=== PATIENT | male | born 1950 | race Caucasian/White ===

== ENCOUNTER → 2018-03-24 | Outpatient (CLI) | payer MEDICARE, BC | LOC: LABWHC1 12:57 | PROVIDERS: ATTEND Otolaryngology | DX: K11.5 Sialolithiasis (principal) | CPT/HCPCS: 36415; 82330 ==

== ENCOUNTER → 2018-09-03 | Outpatient (CLI) | payer MEDICARE, BC ==
--- NOTE | 2018-09-03 14:40 | CT ---
EXAMINATION TYPE: CT soft tissue neck w con DATE OF EXAM: 09/03/2018 HISTORY: Generalized right sided neck swelling. COMPARISON: MRI neck March 02, 2013 CT DLP: 591 mGycm. Automated Exposure Control for Dose Reduction was Utilized. TECHNIQUE: CT scan of the neck is performed with IV Contrast, patient injected with 100ml mL of Isov ue 300, axial images are obtained, coronal and sagittal reformatted images are reviewed. FINDINGS: Airway: No gross abnormality seen. Parotid/submandibular glands: No gross abnormality seen. Carotid/Vascular Structures: No significant plaque or stenosis in carotid bulb level bilaterally. Osseous Structures: Mild disc space narrowing with vacuum disc phenomenon at C5-C6 and C6-C7 level. Other: No suspicious greater than 1 cm neck adenopathy. IMPRESSION: No suspicious mass or adenopathy.
== END | disposition home or self-care (01) ==
LOC: RADCTMAIN 13:20
PROVIDERS: ATTEND Otolaryngology
DX: K11.8 Other diseases of salivary glands (principal); R22.1 Localized swelling, mass and lump, neck
CPT/HCPCS: 82565; 84520; 70491; 36415; Q9967

== ENCOUNTER 2018-09-16 12:09 | Emergency (ER) | payer MEDICARE, BC ==
[2018-09-16 12:27] VITALS: TEMP 98.6
--- NOTE | 2018-09-16 12:29 | ED ---
General Adult HPI - General Stated complaint: chest pain Time Seen by Provider: 09/16/18 12:09 Source: RN notes reviewed - History of Present Illness Initial comments: This is a 68-year-old male who presents to the emergency department complaining of feeling lightheaded and having some left-sided chest pain that last approximate one minute. Patient was in the emergency department while his was in cardiac arrest and she eventually and after he left the room when she was pronounced he started feeling lightheaded and began to have left- sided chest pain. Patient states it lasted about a minute. Patient states the pain did not radiate anywhere. Patient states she was not short of breath. Patient states he was lightheaded and needed to sit down. Patient states currently he is not having any symptoms. Patient states a little early was mildly nauseated. Patient denies any radiation of the pain. Patient denies any diaphoretic episodes. Patient denies any history of cardiac problems denies any diabetes denies any high blood pressure denies any smoking history. Patient denies any family history of heart disease - Related Data Previous Rx's Medication Instructions Recorded ALPRAZolam [Xanax] 0.5 mg PO BID PRN 3 Days #6 tablet 09/16/18 Allergies Allergy/AdvReac Type Severity Reaction Status Date / Time No Known Allergies Allergy Verified 09/16/18 12:28 Review of Systems ROS Statement: Those systems with pertinent positive or pertinent negative responses have been documented in the HPI. ROS Other: All systems not noted in ROS Statement are negative. General Exam - General Exam Comments Initial Comments: GENERAL: Patient is well-developed and well-nourished. Patient is nontoxic and well- hydrated and is in no acute distress. ENT: Neck is soft and supple. No significant lymphadenopathy is noted. Oropharynx is clear. Moist mucous membranes. Neck has full range of motion without eliciting any pain. EYES: The sclera were anicteric and conjunctiva were pink and moist. Extraocular movements were intact and pupils were equal round and reactive to light. Ey elids were unremarkable. PULMONARY: Unlabored respirations. Good breath sounds bilaterally. No audible rales rhonchi or wheezing was noted. CARDIOVASCULAR: There is a regular rate and rhythm without any murmurs gallops or rubs. ABDOMEN: Soft and nontender with normal bowel sounds. No palpable organomegaly was noted. There is no palpable pulsatile mass. SKIN: Skin is clear with no lesions or rashes and otherwise unremarkable. NEUROLOGIC: Patient is alert and oriented x3. Cranial nerves II through XII are grossly intact. Motor and sensory are also intact. Normal speech, volume and content. Symmetrical smile. MUSCULOSKELETAL: Normal extremities with adequate strength and full range of motion. No lower extremity swelling or edema. No calf tenderness. LYMPHATICS: No significant lymphadenopathy is noted PSYCHIATRIC: Mildly anxious Course Vital Signs 09/16/18 09/16/18 09/16/18 12:15 12:55 13:30 Temperature 98.6 F Pulse Rate 78 71 83 Respiratory 16 18 20 Rate Blood Pressure 178/120 164/96 164/103 O2 Sat by Pulse 98 100 99 Oximetry 09/16/18 09/16/18 09/16/18 14:22 15:00 15:30 Temperature Pulse Rate 74 73 Respiratory 15 18 Rate Blood Pressure 148/91 142/99 141/97 O2 Sat by Pulse 97 97 Oximetry 09/16/18 09/16/18 16:00 16:30 Temperature Pulse Rate 79 75 Respiratory 16 18 Rate Blood Pressure 132/93 140/94 O2 Sat by Pulse 97 96 Oximetry Medical Decision Making - Medical Decision Making EKG shows normal sinus rhythm at 85 bpm CA interval 170 QRS is 96 QT interval 356 QTC is 423. Patient's EKG shows no ST segment elevation or depression or T wave abnormalities are noted. Chest x-ray showed no acute abnormality. Patient's repeat troponin was normal as well. Patient did not have any more episodes of chest pain while in the emergency department. Ativan did seem to help the patient feel more comfortable. - Lab Data Result diagrams: 09/16/18 12:15 09/16/18 12:15 Lab Results 09/16/18 09/16/18 09/16/18 Range/Units 12:15 12:15 12:15 WBC 7.2 (3.8-10.6) k/uL RBC 4.93 (4.30-5.90) m/uL Hgb 14.6 (13.0-17.5) gm/dL Hct 46.1 (39.0-53.0) % MCV 93.5 (80.0-100.0) fL MCH 29.5 (25.0-35.0) pg MCHC 31.6 (31.0-37.0) g/dL RDW 13.6 (11.5-15.5) % Plt Count 228 (150-450) k/uL Neutrophils % 75 % Lymphocytes % 15 % Monocytes % 8 % Eosinophils % 1 % Basophils % 0 % Neutrophils # 5.4 (1.3-7.7) k/uL Lymphocytes # 1.1 (1.0-4.8) k/uL Monocytes # 0.5 (0-1.0) k/uL Eosinophils # 0.0 (0-0.7) k/uL Basophils # 0.0 (0-0.2) k/uL PT 9.7 (9.0-12.0) sec INR 0.9 (<1.2) APTT 23.2 (22.0-30.0) sec Sodium 140 (137-145) mmol/L Potassium 4.3 (3.5-5.1) mmol/L Chloride 104 (98-107) mmol/L Carbon Dioxide 24 (22-30) mmol/L Anion Gap 12 mmol/L BUN 22 H (9-20) mg/dL Creatinine 1.07 (0.66-1.25) mg/dL Est GFR (CKD-EPI)AfAm 82 (>60 ml/min/1.73 sqM) Est GFR (CKD-EPI)NonAf 71 (>60 ml/min/1.73 sqM) Glucose 141 H (74-99) mg/dL Calcium 10.4 H (8.4-10.2) mg/dL Magnesium 2.1 (1.6-2.3) mg/dL Total Bilirubin 1.6 H (0.2-1.3) mg/dL AST 22 (17-59) U/L ALT 34 (21-72) U/L Alkaline Phosphatase 78 (38-126) U/L Troponin I (0.000-0.034) ng/mL Total Protein 7.7 (6.3-8.2) g/dL Albumin 4.8 (3.5-5.0) g/dL 09/16/18 09/16/18 Range/Units 12:15 15:30 WBC (3.8-10.6) k/uL RBC (4.30-5.90) m/uL Hgb (13.0-17.5) gm/dL Hct (39.0-53.0) % MCV (80.0-100.0) fL MCH (25.0-35.0) pg MCHC (31.0-37.0) g/dL RDW (11.5-15.5) % Plt Count (150-450) k/uL Neutrophils % % Lymphocytes % % Monocytes % % Eosinophils % % Basophils % % Neutrophils # (1.3-7.7) k/uL Lymphocytes # (1.0-4.8) k/uL Monocytes # (0-1.0) k/uL Eosinophils # (0-0.7) k/uL Basophils # (0-0.2) k/uL PT (9.0-12.0) sec INR (<1.2) APTT (22.0-30.0) sec Sodium (137-145) mmol/L Potassium (3.5-5.1) mmol/L Chloride (98-107) mmol/L Carbon Dioxide (22-30) mmol/L Anion Gap mmol/L BUN (9-20) mg/dL Creatinine (0.66-1.25) mg/dL Est GFR (CKD-EPI)AfAm (>60 ml/min/1.73 sqM) Est GFR (CKD-EPI)NonAf (>60 ml/min/1.73 sqM) Glucose (74-99) mg/dL Calcium (8.4-10.2) mg/dL Magnesium (1.6-2.3) mg/dL Total Bilirubin (0.2-1.3) mg/dL AST (17-59) U/L ALT (21-72) U/L Alkaline Phosphatase (38-126) U/L Troponin I <0.012 <0.012 (0.000-0.034) ng/mL Total Protein (6.3-8.2) g/dL Albumin (3.5-5.0) g/dL Disposition Clinical Impression: Grief reaction, Chest pain Disposition: HOME SELF-CARE Condition: Good Instructions (If sedation given, give patient instructions): Chest Pain (ED) Additional Instructions: Patient should return if he is having any chest pain shortness of breath or any new symptoms. Prescriptions: ALPRAZolam [Xanax] 0.5 mg PO BID PRN 3 Days #6 tablet PRN Reason: Anxiety Is patient prescribed a controlled substance at d/c from ED?: No Referrals: Edgard Lopes MD [Primary Care Provider] - 1-2 days Time of Disposition: 16:42
[2018-09-16] MEDS ORDERED: NITROGLYCERIN OINT 1 INCH/GM PACKET TOPICAL STA (12:31)
[2018-09-16] MEDS ORDERED: ASPIRIN 81 MG PO STA (12:31)
[2018-09-16 12:39] LABS: Basophils % (A) 0 %; Eosinophils % (A) 1 %; HCT 46.1 % (39.0-53.0); HGB 14.6 gm/dL (13.0-17.5); Lymphocytes # (A) 1.1 k/uL (1.0-4.8); Lymphocytes % (A) 15 %; MCH 29.5 pg (25.0-35.0); MCHC 31.6 g/dL (31.0-37.0); MCV 93.5 fL (80.0-100.0); Mean Platelet Volume 7.1; Monocytes # (A) 0.5 k/uL (0-1.0); Monocytes % (A) 8 %; Neutrophils # (A) 5.4 k/uL (1.3-7.7); Neutrophils % (A) 75 %; Platelet Count 228 k/uL (150-450); RBC 4.93 m/uL (4.30-5.90); RDW 13.6 % (11.5-15.5); WBC 7.2 k/uL (3.8-10.6)
[2018-09-16 12:48] LABS: INR 0.9 (<1.2); Partial Thromboplastin Time 23.2 sec (22.0-30.0); Prothrombin Time 9.7 sec (9.0-12.0)
[2018-09-16 12:56] LABS: Albumin 4.8 g/dL (3.5-5.0); Calcium 10.4 mg/dL (8.4-10.2); Magnesium 2.1 mg/dL (1.6-2.3); Potassium 4.3 mmol/L (3.5-5.1); Total Bilirubin 1.6 mg/dL (0.2-1.3); Total Protein 7.7 g/dL (6.3-8.2)
--- NOTE | 2018-09-16 12:58 | XR ---
EXAMINATION TYPE: XR chest 2V DATE OF EXAM: 09/16/2018 COMPARISON: NONE TECHNIQUE: PA and lateral views submitted. HISTORY: Chest pain shortness of breath FINDINGS: The lungs are clear and there is no pneumothorax, pleural effusion, or focal pneumonia. Diffuse hyp erinflation. There is no pneumothorax or overt failure. Arthropathy of the shoulders. Correlate for C OPD. IMPRESSION: 1. Correlate for COPD.
[2018-09-16] MEDS ORDERED: LORazepam 2 MG/ML INJ IV STA ×2 (13:39→15:35)
[2018-09-16 16:48] VITALS: PULSE 75; RESP 18
[2018-09-16 17:01] VITALS: BP 139/89
== END 2018-09-16 16:59 | disposition home or self-care (01) ==
LOC: EC 12:09
DX: R07.9 Chest pain, unspecified (principal); F43.20 Adjustment disorder, unspecified; R42 Dizziness and giddiness
CPT/HCPCS: 36415; 93005; 80053; 83735; 84484; 85025; 85610; 85730; 71046; 99285; 96374; 96376; J2060

== ENCOUNTER 2019-02-13 09:22 | Emergency (ER) | payer MEDICARE, BC ==
[2019-02-13 09:42] VITALS: PULSE 70; RESP 18; TEMP 98
[2019-02-13] MEDS ORDERED: SODIUM CHLORIDE 0.9% 1,000 ML IV STA ×2 (10:19)
[2019-02-13 10:42] LABS: Basophils # (A) 0.1 k/uL (0-0.2); Basophils % (A) 2 %; Eosinophils # (A) 0.1 k/uL (0-0.7); Eosinophils % (A) 2 %; HCT 46.6 % (39.0-53.0); HGB 14.8 gm/dL (13.0-17.5); Lymphocytes # (A) 0.8 k/uL (1.0-4.8); Lymphocytes % (A) 14 %; MCH 30.5 pg (25.0-35.0); MCHC 31.8 g/dL (31.0-37.0); Mean Platelet Volume 6.7; Monocytes # (A) 0.4 k/uL (0-1.0); Monocytes % (A) 7 %; Neutrophils # (A) 4.2 k/uL (1.3-7.7); Neutrophils % (A) 74 %; Platelet Count 194 k/uL (150-450); RBC 4.86 m/uL (4.30-5.90); RDW 12.8 % (11.5-15.5); WBC 5.7 k/uL (3.8-10.6)
[2019-02-13 10:51] LABS: INR 0.9 (<1.2); Partial Thromboplastin Time 25.1 sec (22.0-30.0); Prothrombin Time 9.8 sec (9.0-12.0)
--- NOTE | 2019-02-13 10:52 | ED ---
Recheck HPI - General Source: patient, RN notes reviewed, old records reviewed Mode of arrival: ambulatory Limitations: no limitations <Bisi Potts - Last Filed: 02/13/19 11:59> <Luis Nathan - Last Filed: 02/13/19 16:51> - General Chief Complaint: Recheck/Abnormal Lab/Rx Stated Complaint: Nausea Time Seen by Provider: 02/13/19 10:03 - History of Present Illness Initial Comments: Patient is a 68-year-old male, with history of nausea and lightheadedness, for the past day. Patient reports that he was treated for vertigo last week. He states that he had severe vertigo at that time, had intractable nausea and vomiting. He is treated at [facility]. Patient reports that he was discharged from the ER with perceptions for Zofran and meclizine hasn't had any severe nausea and vertigo since that time. He states that today he felt slightly nauseated and lightheaded. He complained of chills. Patient denies any cough or specific fever or any other complaints. Patient states that he's had no associated history of sick contacts. Patient is an director of catering sales. (Bisi Potts) - Related Data Previous Rx's Medication Instructions Recorded ALPRAZolam [Xanax] 0.5 mg PO BID PRN 3 Days #6 tablet 09/16/18 Allergies Allergy/AdvReac Type Severity Reaction Status Date / Time No Known Allergies Allergy Verified 09/16/18 12:28 Review of Systems ROS Other: All systems not noted in ROS Statement are negative. <Bisi Potts - Last Filed: 02/13/19 11:59> ROS Other: All systems not noted in ROS Statement are negative. <Luis Nathan - Last Filed: 02/13/19 16:51> ROS Statement: Those systems with pertinent positive or pertinent negative responses have been documented in the HPI. Past Medical History Past Medical History: No Reported History History of Any Multi-Drug Resistant Organisms: None Reported Past Surgical History: Appendectomy Additional Past Surgical History / Comment(s): chin surgery Past Psychological History: No Psychological Hx Reported Smoking Status: Never smoker Past Alcohol Use History: Rare Past Drug Use History: None Reported <Bisi Potts - Last Filed: 02/13/19 11:59> General Exam Limitations: no limitations Head exam: Present: atraumatic, normocephalic, normal inspection Eye exam: Present: normal appearance, PERRL, EOMI. Absent: scleral icterus, conjunctival injection, periorbital swelling ENT exam: Present: normal exam, mucous membranes moist Neck exam: Present: normal inspection. Absent: tenderness, meningismus, lymphadenopathy Respiratory exam: Present: normal lung sounds bilaterally. Absent: respiratory distress, wheezes, rales, rhonchi, stridor Cardiovascular Exam: Present: regular rate, normal rhythm, normal heart sounds. Absent: systolic murmur, diastolic murmur, rubs, gallop, clicks GI/Abdominal exam: Present: soft, normal bowel sounds. Absent: distended, tend erness, guarding, rebound, rigid Extremities exam: Present: normal inspection, full ROM, normal capillary refill. Absent: tenderness, pedal edema, joint swelling, calf tenderness Back exam: Present: normal inspection Neurological exam: Present: alert, oriented X3, CN II-XII intact Psychiatric exam: Present: normal affect, normal mood Skin exam: Present: warm, dry, intact, normal color. Absent: rash <Bisi Potts - Last Filed: 02/13/19 11:59> - General Exam Comments Initial Comments: 5-year-old male. Alert and oriented 3. No distress. (Bisi Potts) Course <Luis Nathan - Last Filed: 02/13/19 16:51> Vital Signs 02/13/19 02/13/19 09:37 12:24 Temperature 98.0 F 98.0 F Pulse Rate 70 70 Respiratory 18 18 Rate Blood Pressure 157/92 132/81 O2 Sat by Pulse 99 99 Oximetry - Reevaluation(s) Reevaluation #1: 02/13/19 16:50 PA supervision: I proceeded [id number] evaluation the patient did discuss findings with him. We did review options for further investigation the patient would rather for go CAT scan at this time he will return if any problems he does have a prescription for Antivert at home which she has not used it. I do agree with the assessment and plan. (Luis Nathan) Medical Decision Making - Lab Data Result diagrams: 02/13/19 10:38 02/13/19 10:38 - Radiology Data Radiology results: report reviewed <Bisi Potts - Last Filed: 02/13/19 11:59> - Lab Data Result diagrams: 02/13/19 10:38 02/13/19 10:38 <Luis Nathan - Last Filed: 02/13/19 16:51> - Medical Decision Making is a pleasant 68-year-old male, he presented today for vague symptoms of some mild nausea, lightheadedness and chilled today. He was treated for vertigo last week. This time he has no pains. No neurological deficits. Vital signs are stable. He otherwise appears well. At this time patient's labwork including EKG reviewed and negative for any acute process. I a review patient's chest x-ray which shows no acute cardiothoracic disease. Patient's case was discussed with Dr. Nathan who also examined the Patient myself. We did offer risk and benefit of further evaluation for this vague dizziness complaint and did offer CT of brain. Patient states his she's been having it for the past week he prefers to forego this and just to wait and watch see how he feels. Discussed he likely has a viral syndrome that he would prefer to go home. I discussed strict return parameters. (Bisi Potts) - Lab Data Lab Results 02/13/19 02/13/19 02/13/19 Range/Units 10:38 10:38 10:38 WBC 5.7 (3.8-10.6) k/uL RBC 4.86 (4.30-5.90) m/uL Hgb 14.8 (13.0-17.5) gm/dL Hct 46.6 (39.0-53.0) % MCV 96.0 (80.0-100.0) fL MCH 30.5 (25.0-35.0) pg MCHC 31.8 (31.0-37.0) g/dL RDW 12.8 (11.5-15.5) % Plt Count 194 (150-450) k/uL Neutrophils % 74 % Lymphocytes % 14 % Monocytes % 7 % Eosinophils % 2 % Basophils % 2 % Neutrophils # 4.2 (1.3-7.7) k/uL Lymphocytes # 0.8 L (1.0-4.8) k/uL Monocytes # 0.4 (0-1.0) k/uL Eosinophils # 0.1 (0-0.7) k/uL Basophils # 0.1 (0-0.2) k/uL PT (9.0-12.0) sec INR (<1.2) APTT (22.0-30.0) sec Sodium 140 (137-145) mmol/L Potassium 4.2 (3.5-5.1) mmol/L Chloride 106 (98-107) mmol/L Carbon Dioxide 26 (22-30) mmol/L Anion Gap 8 mmol/L BUN 16 (9-20) mg/dL Creatinine 1.00 (0.66-1.25) mg/dL Est GFR (CKD-EPI)AfAm 88 (>60 ml/min/1.73 sqM) Est GFR (CKD-EPI)NonAf 76 (>60 ml/min/1.73 sqM) Glucose 96 (74-99) mg/dL Calcium 9.5 (8.4-10.2) mg/dL Magnesium 2.3 (1.6-2.3) mg/dL Total Bilirubin 1.8 H (0.2-1.3) mg/dL AST 23 (17-59) U/L ALT 22 (21-72) U/L Alkaline Phosphatase 67 (38-126) U/L Troponin I (0.000-0.034) ng/mL NT-Pro-B Natriuret Pep 37 pg/mL Total Protein 7.2 (6.3-8.2) g/dL Albumin 4.3 (3.5-5.0) g/dL Amylase 77 (30-110) U/L Lipase 86 (23-300) U/L 02/13/19 02/13/19 Range/Units 10:38 10:38 WBC (3.8-10.6) k/uL RBC (4.30-5.90) m/uL Hgb (13.0-17.5) gm/dL Hct (39.0-53.0) % MCV (80.0-100.0) fL MCH (25.0-35.0) pg MCHC (31.0-37.0) g/dL RDW (11.5-15.5) % Plt Count (150-450) k/uL Neutrophils % % Lymphocytes % % Monocytes % % Eosinophils % % Basophils % % Neutrophils # (1.3-7.7) k/uL Lymphocytes # (1.0-4.8) k/uL Monocytes # (0-1.0) k/uL Eosinophils # (0-0.7) k/uL Basophils # (0-0.2) k/uL PT 9.8 (9.0-12.0) sec INR 0.9 (<1.2) APTT 25.1 (22.0-30.0) sec Sodium (137-145) mmol/L Potassium (3.5-5.1) mmol/L Chloride (98-107) mmol/L Carbon Dioxide (22-30) mmol/L Anion Gap mmol/L BUN (9-20) mg/dL Creatinine (0.66-1.25) mg/dL Est GFR (CKD-EPI)AfAm (>60 ml/min/1.73 sqM) Est GFR (CKD-EPI)NonAf (>60 ml/min/1.73 sqM) Glucose (74-99) mg/dL Calcium (8.4-10.2) mg/dL Magnesium (1.6-2.3) mg/dL Total Bilirubin (0.2-1.3) mg/dL AST (17-59) U/L ALT (21-72) U/L Alkaline Phosphatase (38-126) U/L Troponin I <0.012 (0.000-0.034) ng/mL NT-Pro-B Natriuret Pep pg/mL Total Protein (6.3-8.2) g/dL Albumin (3.5-5.0) g/dL Amylase (30-110) U/L Lipase (23-300) U/L 02/13/19 10:52 EKG shows sinus bradycardia, otherwise normal EKG. Ventricular rate of 59 bpm. KS interval is 180 ms. QRS duration is 94 ms. QT QTc is 402/397 ms. (Bisi Potts) - Radiology Data Normal CXR. (Bisi Potts) Disposition Is patient prescribed a controlled substance at d/c from ED?: No Time of Disposition: 11:57 <Bisi Potts - Last Filed: 02/13/19 11:59> <Luis Nathan - Last Filed: 02/13/19 16:51> Clinical Impression: Nausea, Dizziness Disposition: HOME SELF-CARE Condition: Good Instructions (If sedation given, give patient instructions): Vertigo (ED) Additional Instructions: Follow up with PCP, return to emergency department if any alarming signs or symptoms occur. Patient can continue to use the meclizine as needed for dizziness or Zofran for nausea. Motrin or Tylenol for pain or fevers. Referrals: Edgard Lopes MD [Primary Care Provider] - 1-2 days
[2019-02-13 10:54] LABS: Albumin 4.3 g/dL (3.5-5.0); Calcium 9.5 mg/dL (8.4-10.2); Magnesium 2.3 mg/dL (1.6-2.3); Potassium 4.2 mmol/L (3.5-5.1); Total Bilirubin 1.8 mg/dL (0.2-1.3); Total Protein 7.2 g/dL (6.3-8.2)
[2019-02-13] MEDS ORDERED: ONDANSETRON 4 MG/2 ML VIAL IVP STA (10:58)
--- NOTE | 2019-02-13 11:15 | XR ---
EXAMINATION TYPE: XR chest 2V DATE OF EXAM: 02/13/2019 HISTORY: Chest Pain. REFERENCE: Previous study dated 09/16/2018. FINDINGS: The lungs are clear. Pleural space are clear. The heart is not enlarged. IMPRESSION: NO ACTIVE INTRATHORACIC DISEASE.
[2019-02-13 12:26] VITALS: BP 132/81
== END 2019-02-13 12:20 | disposition home or self-care (01) ==
LOC: EC 09:22
DX: R11.0 Nausea (principal); R42 Dizziness and giddiness; R68.83 Chills (without fever)
CPT/HCPCS: 36415; 71046; 80053; 82150; 83690; 83735; 83880; 84484; 85025; 85610; 85730; 93005; 96360; 99284

== ENCOUNTER → 2019-03-01 | Outpatient (CLI) | payer MEDICARE, BC ==
--- NOTE | 2019-03-01 08:58 | MR ---
EXAMINATION TYPE: MR brain wo/w con DATE OF EXAM: 03/01/2019 COMPARISON: MRI of the orbits and face with history of fibromatosis from 03/02/2013. HISTORY: Vertigo, nausea TECHNIQUE: Multiplanar, multisequence images of the brain and brainstem is performed without and with IV contras t, utilizing 7.5 ml mL intravenous Gadavist . FINDINGS: Diffusion weighted images demonstrate no evidence of a recent infarct or other diffusion ab normality. There is no extra-axial fluid collection. Mild confluent periventricular white matter lydia nge most notable in the periatrial white matter and few foci of subcortical T2/FLAIR hyperintensity s uch as an the posterior right parietal lobe on FLAIR axial fat-sat image 20 measuring 2 mm are seen. Overall mild burden nonspecific white matter change. Old punctate lacunar injury is seen in the right lentiform nucleus. The ventricular system and cisternal spaces are symmetrically prominent compatibl e with age-related volume loss. The brain volume is age appropriate. Midline structures demonstrate normal morphology. Nonenhancing 4 mm pineal gland cyst is incidentally seen without impression on the superior tectum. No cerebral aqueduct narrowing. The craniocervical j unction appears within normal limits. Post contrast images demonstrate no abnormal enhancement. The dural venous sinuses appear patent. Scant mucosal thickening is present of the maxillary sinuses and ethmoid sinuses as well as within the left frontal recess and frontal sinuses. Sphenoid sinuses also demonstrate mucosal thickening. Mastoid air cells are well aerated. IMPRESSION: 1. No acute infarct, midline shift, mass effect, nor abnormal intracranial enhancement. 2. Mild pansinusitis. 3. Mild burden nonspecific white matter change and old lacunar injury of the right lentiform nucleus. Mild age-related volume loss. 4. Incidentally noted 4 mm benign pineal gland cyst with no current impression on the superior tectum and no aqueduct narrowing.
== END ==
LOC: RADMRIMAIN 07:03
PROVIDERS: ATTEND Internal Medicine Geriatric Medicine
DX: R90.89 Other abnormal findings on diagnostic imaging of central nervous system (principal); R94.2 Abnormal results of pulmonary function studies
CPT/HCPCS: 70553; A9585

== ENCOUNTER → 2019-03-02 | Outpatient (CLI) | payer MEDICARE, BC ==
--- NOTE | 2019-03-02 09:14 | US ---
EXAMINATION TYPE: US carotid duplex BILAT DATE OF EXAM: 03/02/2019 COMPARISON: NONE CLINICAL HISTORY: R42 vertigo. a couple episodes of dizziness, nausea with lack of bowel control EXAM MEASUREMENTS: RIGHT: Peak Systolic Velocity (PSV) cm/sec ----- Right CCA: 76.7 ----- Right ICA: 78.8 ----- Right ECA: 82.3 ICA/CCA ratio: 1.0 RIGHT: End Diastole cm/sec ----- Right CCA: 34.8 ----- Right ICA: 38.7 ----- Right ECA: 20.3 LEFT: Peak Systolic Velocity (PSV) cm/sec ----- Left CCA: 84.5 ----- Left ICA: 93.2 ----- Left ECA: 65.8 ICA/CCA ratio: 1.1 LEFT: End Diastole cm/sec ----- Left CCA: 32.9 ----- Left ICA: 42.5 ----- Left ECA: 18.0 VERTEBRALS (direction of flow): Right Vertebral: Antegrade Left Vertebral: Antegrade Rhythm: Normal Mild homogeneous plaque with no significant stenosis seen IMPRESSION: Mild degree of grayscale atheromatous plaquing with no sonographically evident hemodynam ically significant stenosis within either visualized carotid arterial system. Criteria for Assigning % of Stenosis / Diameter reduction (Estimation based on the indirect measurements of the internal carotid artery velocities (ICA PSV). 1. Normal (no stenosis)=ICA PSV < 125 cm/s: ratio < 2.0: ICA EDV<40 cm/s. 2. Less than 50% stenosis=ICA PSV < 125 cm/s: ratio < 2.0: ICA EDV<40 cm/s. 3. 50 to 69% stenosis=ICA PSV of 125 to 230 cm/s: ration 2.0 ? 4.0: ICA EDV 40-100 cm/s. 4. Greater than 70% stenosis to near occlusion= ICA PSV > 230 cm/s: ratio > 4.0: ICA EDV > 100 cm/s. 5. Near occlusion= ICA PSV velocities may be low or undetectable: variable ratio and ICA EDV. 6. Total occlusion=unable to detect flow.
== END | disposition home or self-care (01) ==
LOC: RADUSMAIN 07:53
PROVIDERS: ATTEND Internal Medicine Geriatric Medicine
DX: I65.23 Occlusion and stenosis of bilateral carotid arteries (principal)
CPT/HCPCS: 92537; 92540; 93880

== ENCOUNTER → 2019-03-30 | Outpatient (CLI) | payer MEDICARE, BC | END | disposition home or self-care (01) | LOC: LABWHC1 12:23 | PROVIDERS: ATTEND Otolaryngology | DX: R42 Dizziness and giddiness (principal) | CPT/HCPCS: 36415; 84443; 86618 ==

== ENCOUNTER → 2019-10-28 | Outpatient (CLI) | payer MEDICARE, BC ==
--- NOTE | 2019-10-28 09:55 | US ---
EXAMINATION TYPE: US abdomen complete DATE OF EXAM: 10/28/2019 COMPARISON: US 10/21/2010 CLINICAL HISTORY: K81.9 Cholecystitis. Abd pain EXAM MEASUREMENTS: Liver Length: 15.3 cm Gallbladder Wall: 0.2 cm CBD: 0.4 cm Spleen: 8.6 cm Right Kidney: 10.7 x 5.1 x 4.7 cm Left Kidney: 11.3 x 5.9 x 4.9 cm Pancreas: Portions visualized appear normal. Liver: Heterogeneous, mild fatty Gallbladder: wnl Evidence for sonographic Koo's sign: No CBD: wnl Spleen: wnl as visualized, slightly obscured by bowel gas Right Kidney: No hydronephrosis or masses seen Left Kidney: No hydronephrosis or masses seen. There is a 1.9 x 2.0 x 2.1 cm cyst on the lateral kid claudia Upper IVC: wnl Abd Aorta: wnl The liver is heterogeneous. IMPRESSION: 1. Mild fatty liver. #2 left renal cyst
== END | disposition home or self-care (01) ==
LOC: RADUSWWP 08:57
PROVIDERS: ATTEND Internal Medicine Geriatric Medicine
DX: K76.0 Fatty (change of) liver, not elsewhere classified (principal); N28.1 Cyst of kidney, acquired; K81.9 Cholecystitis, unspecified
CPT/HCPCS: 76700

== ENCOUNTER 2024-10-02 14:52 | Emergency (ER) | payer MEDICARE, BC ==
--- NOTE | 2024-10-02 15:14 | ED ---
Abdominal Pain HPI - General Chief Complaint: Abdominal Pain Stated Complaint: Diarrhea, left leg pain Time Seen by Provider: 10/02/24 15:11 Source: patient, RN notes reviewed, old records reviewed Mode of arrival: ambulatory Limitations: no limitations - History of Present Illness Initial Comments: 74-year-old male presented the ER for evaluation of abdominal pain and left leg swelling. Patient reports he has a past medical history significant of early prostate cancer. He is not currently on any chemotherapy or radiation. He is following up with an oncologist out of [facility] and Dr. Wood. Patient reports on Thursday he started to experience full body tremors and fevers for which she was seen in the emergency department. Patient states he received IV antibiotics and was ultimately discharged home. He states fevers resolved on Thursday morning and he did appear to feel better. Upon waking on Thursday he noticed to have loose stool and lower abdominal cramping. He denies any hematochezia, melena, nausea or vomiting. He denies any urinary complaints, shortness of breath, chest pain, cough, congestion, runny nose. Patient also reports his left leg appears to be edematous compared to the right. He denies a history of DVTs or PEs and is not currently on a blood thinner. Denies any injury to left lower extremity. He has taken a couple baby aspirin for discomfort. Patient reports he has had colonoscopies in the past with benign polyps removed. No other complaints. Patient admits to prior abdominal surgeries of appendectomy when he was in the sixth grade. No history of ulcerative colitis, Crohn's disease or diverticulitis. - Related Data Previous Rx's Medication Instructions Recorded ALPRAZolam [Xanax] 0.5 mg PO BID PRN 3 Days #6 tablet 09/16/18 Cephalexin [Keflex] 500 mg PO Q6HR #40 cap 10/02/24 Allergies Allergy/AdvReac Type Severity Reaction Status Date / Time latex Allergy Itching Verified 10/02/24 14:57 Review of Systems ROS Statement: Those systems with pertinent positive or pertinent negative responses have been documented in the HPI. ROS Other: All systems not noted in ROS Statement are negative. Past Medical History Past Medical History: No Reported History History of Any Multi-Drug Resistant Organisms: None Reported Past Surgical History: Appendectomy Additional Past Surgical History / Comment(s): chin surgery Past Psychological History: No Psychological Hx Reported Smoking Status: Never smoker Past Alcohol Use History: Rare Past Drug Use History: None Reported General Exam Limitations: no limitations General appearance: alert, in no apparent distress Respiratory exam: Present: normal lung sounds bilaterally. Absent: respiratory distress, wheezes, rales, rhonchi, stridor Cardiovascular Exam: Present: regular rate, normal rhythm, normal heart sounds. Absent: systolic murmur, diastolic murmur, rubs, gallop, clicks GI/Abdominal exam: Present: soft, tenderness (lower), normal bowel sounds. Absent: distended, guarding, rebound, rigid Extremities exam: Present: full ROM, normal capillary refill (2+ left DP pulse. ), other (There is edema with mild erythema spreading proximally to left calf) Neurological exam: Present: alert, oriented X3, CN II-XII intact Skin exam: Present: warm, dry, intact, normal color. Absent: rash Course Vital Signs 10/02/24 10/02/24 10/02/24 14:53 14:56 16:51 Temperature 97.9 F 98 F Pulse Rate 67 62 Respiratory 16 14 14 Rate Blood Pressure 171/81 126/88 O2 Sat by Pulse 97 97 Oximetry 10/02/24 18:09 Temperature Pulse Rate 67 Respiratory 14 Rate Blood Pressure 130/87 O2 Sat by Pulse 96 Oximetry Medical Decision Making - Medical Decision Making Was pt. sent in by a medical professional or institution ([facility], STORE MANAGEMENT TRAINEE, urgent care, hospital, or custodial...) When possible be specific @ -No Did you speak to anyone other than the patient for history (EMS, parent, family, police, friend...)? What history was obtained from this source @ -No Did you review nursing and triage notes (agree or disagree)? Why? @ -I reviewed and agree with nursing and triage notes Were old charts reviewed (outside hosp., previous admission, EMS record, old EKG, old radiological studies, urgent care reports/EKG's, custodial records)? Report findings @ -[ER visit reviewed from 09-28-2024. Patient seen here for tremors and fever. Patient ultimately discharged home. Patient received IV Rocephin prior to discharge. Differential Diagnosis (chest pain, altered mental status, abdominal pain women, abdominal pain men, vaginal bleeding, weakness, fever, dyspnea, syncope, headac he, dizziness, GI bleed, back pain, seizure, CVA, palpatations, mental health, musculoskeletal)? @ -Differential Abdominal Pain Men: Appendicitis, cholecystitis, diverticulosis, ischemic bowel, pancreatitis, hepatitis, UTI, gastroenteritis, AAA, incarcerated hernia, bowel obstruction, constipation, inflammatory bowel, hepatitis, peptic ulcer disease, splenic infarction, perforated viscus, testicular torsion, this is not meant to be an all-inclusive list EKG interpreted by me (3pts min.). @ -[As above X-rays interpreted by me (1pt min.). @ -None done CT interpreted by me (1pt min.). @ -[CT abdomen pelvis showed liquid stool throughout the colon. No associated mesenteric inflammation. No acute intra-abdominal/pelvic process. U/S interpreted by me (1pt. min.). @ -Ultrasound venous Doppler left lower extremity negative for acute evidence of DVT. What testing was considered but not performed or refused? (CT, X-rays, U/S, labs)? Why? @ -[None What meds were considered but not given or refused? Why? @ -None Did you discuss the management of the patient with other professionals (pr ofessionals i.e. , PA, STORE MANAGEMENT TRAINEE, lab, RT, psych nurse, social worker assistant, patent lawyer, teacher, public relations officer, family caseworker)? Give summary @ -No Was smoking cessation discussed for >3mins.? @ -No Was critical care preformed (if so, how long)? @ -No Were there social determinants of health that impacted care today? How? (Homelessness, low income, unemployed, alcoholism, drug addiction, transportation, low edu. Level, literacy, decrease access to med. care, group home, rehab)? @ -No Was there de-escalation of care discussed even if they declined (Discuss DNR or withdrawal of care, Hospice)? DNR status @ -No What co-morbidities impacted this encounter? (DM, HTN, Smoking, COPD, CAD, Cancer, CVA, ARF, Chemo, Hep., AIDS, mental health diagnosis, sleep apnea, morbid obesity)? @ -None Was patient admitted / discharged? Hospital course, mention meds given and route, prescriptions, significant lab abnormalities, going to OR and other pertinent info. @ -[Discharge. 74-year-old male presented the ER for evaluation of abdominal pain and diarrhea. Patient also noting edema to left lower extremity. Upon a rrival vital signs stable. Patient in no signs of acute distress nontoxic- appearing. Laboratory studies obtained unimpressive. Elevated lactic at 2.4 for which patient received IV fluid bolus. Urine analysis unremarkable. Given edema to left lower extremity ultrasound venous Doppler was performed and negative for acute evidence of DVT. As there is mild erythema to ankle spreading proximally to calf, patient will be started on Keflex for treatment of cellulitis. CT abdomen pelvis also performed due to abdominal pain and diarrhea with repeat visit this is showing liquid stool within the colon without other acute process. Upon reevaluation, patient resting comfortably in exam room no signs of acute distress. Results discussed with patient, all questions answered. I advised patient to follow-up closely with PCP he reports he has an appointment later this week. Strict return parameters discussed. Patient discharged in stable condition. Patient verbally expressed understanding a greement care plan. Case discussed with ED attending, . Undiagnosed new problem with uncertain prognosis? @ -No Drug Therapy requiring intensive monitoring for toxicity (Heparin, Nitro, In sulin, Cardizem)? @ -No Were any procedures done? @ -No Diagnosis/symptom? @ -Abdominal pain/cellulitis Acute, or Chronic, or Acute on Chronic? @ -Acute Uncomplicated (without systemic symptoms) or Complicated (systemic symptoms)? @ -Uncomplicated Side effects of treatment? @ -No Exacerbation, Progression, or Severe Exacerbation? @ -No Poses a threat to life or bodily function? How? (Chest pain, USA, GA, pneumonia, PE, COPD, DKA, ARF, appy, cholecystitis, CVA, Diverticulitis, Homicidal, S uicidal, threat to staff... and all critical care pts) @ -Low at this time - Lab Data Result diagrams: 10/02/24 15:10 10/02/24 15:10 Lab Results 10/02/24 10/02/24 10/02/24 Range/Units 15:10 15:10 15:10 WBC 5.59 (4.50-10.00) 10*3/uL RBC 4.89 (4.40-5.60) 10*6/uL Hgb 15.2 (13.0-17.0) g/dL Hct 45.7 (39.6-50.0) % MCV 93.5 (80.0-97.0) fL MCH 31.1 (27.0-32.0) pg MCHC 33.3 (32.0-37.0) g/dL Plt Count 191 (140-440) 10*3/uL MPV 9.1 L (9.5-12.2) fL Immature Gran % (Auto) 0.4 % Neutrophils % 63.1 % Lymphocytes % 21.3 % Monocytes % 11.1 % Eosinophils % 3.2 % Basophils % 0.9 % Immature Gran # 0.02 (0.00-0.04) 10*3/uL Neutrophils # 3.53 (1.80-7.70) 10*3/uL Lymphocytes # 1.19 (0.90-5.00) 10*3/uL Monocytes # 0.62 (0.20-1.00) 10*3/uL Eosinophils # 0.18 (0.04-0.35) 10*3/uL Basophils # 0.05 (0.00-0.10) 10*3/uL Sodium 142 (137-145) mmol/L Potassium 4.4 (3.5-5.1) mmol/L Chloride 105 (98-107) mmol/L Carbon Dioxide 28 (22-30) mmol/L Anion Gap 9 mmol/L BUN 21 H (9-20) mg/dL Creatinine 1.06 (0.66-1.25) mg/dL Est GFR (CKD-EPI)AfAm 79 (>60 ml/min/1.73 sqM) Est GFR (CKD-EPI)NonAf 68 (>60 ml/min/1.73 sqM) Glucose 91 (74-99) mg/dL Lactic Ac Sepsis Rflx Plasma Lactic Acid Primo (0.7-2.0) mmol/L Calcium 9.9 (8.4-10.2) mg/dL Total Bilirubin 0.8 (0.2-1.3) mg/dL AST 24 (17-59) U/L ALT 22 (4-49) U/L Alkaline Phosphatase 81 (38-126) U/L Total Protein 7.0 (6.3-8.2) g/dL Albumin 4.1 (3.5-5.0) g/dL Amylase 66 (30-110) U/L Lipase 87 (23-300) U/L Urine Color Light Yellow Urine Appearance Clear (Clear) Urine pH 5.0 (5.0-8.0) Ur Specific [place] 1.026 (1.001-1.035) Urine Protein Negative (Negative) Urine Glucose (UA) Negative (Negative) Urine Ketones Negative (Negative) Urine Blood Negative (Negative) Urine Nitrite Negative (Negative) Urine Bilirubin Negative (Negative) Urine Urobilinogen <2.0 (<2.0) mg/dL Ur Leukocyte Esterase Negative (Negative) 10/02/24 10/02/24 Range/Units 15:10 16:34 WBC (4.50-10.00) 10*3/uL RBC (4.40-5.60) 10*6/uL Hgb (13.0-17.0) g/dL Hct (39.6-50.0) % MCV (80.0-97.0) fL MCH (27.0-32.0) pg MCHC (32.0-37.0) g/dL Plt Count (140-440) 10*3/uL MPV (9.5-12.2) fL Immature Gran % (Auto) % Neutrophils % % Lymphocytes % % Monocytes % % Eosinophils % % Basophils % % Immature Gran # (0.00-0.04) 10*3/uL Neutrophils # (1.80-7.70) 10*3/uL Lymphocytes # (0.90-5.00) 10*3/uL Monocytes # (0.20-1.00) 10*3/uL Eosinophils # (0.04-0.35) 10*3/uL Basophils # (0.00-0.10) 10*3/uL Sodium (137-145) mmol/L Potassium (3.5-5.1) mmol/L Chloride (98-107) mmol/L Carbon Dioxide (22-30) mmol/L Anion Gap mmol/L BUN (9-20) mg/dL Creatinine (0.66-1.25) mg/dL Est GFR (CKD-EPI)AfAm (>60 ml/min/1.73 sqM) Est GFR (CKD-EPI)NonAf (>60 ml/min/1.73 sqM) Glucose (74-99) mg/dL Lactic Ac Sepsis Rflx Y Plasma Lactic Acid Primo 2.4 H* (0.7-2.0) mmol/L Calcium (8.4-10.2) mg/dL Total Bilirubin (0.2-1.3) mg/dL AST (17-59) U/L ALT (4-49) U/L Alkaline Phosphatase (38-126) U/L Total Protein (6.3-8.2) g/dL Albumin (3.5-5.0) g/dL Amylase (30-110) U/L Lipase (23-300) U/L Urine Color Urine Appearance (Clear) Urine pH (5.0-8.0) Ur Specific [place] (1.001-1.035) Urine Protein (Negative) Urine Glucose (UA) (Negative) Urine Ketones (Negative) Urine Blood (Negative) Urine Nitrite (Negative) Urine Bilirubin (Negative) Urine Urobilinogen (<2.0) mg/dL Ur Leukocyte Esterase (Negative) - Radiology Data Radiology results: report reviewed, image reviewed Disposition Clinical Impression: Abdominal pain, Cellulitis Disposition: HOME SELF-CARE Condition: Stable Instructions (If sedation given, give patient instructions): Abdominal Pain (ED) Additional Instructions: Follow-up with PCP. Return to the ER for any new or worsening symptoms. Take Keflex as prescribed for treatment of left lower extremity redness concern of cellulitis. Prescriptions: Cephalexin [Keflex] 500 mg PO Q6HR #40 cap Is patient prescribed a controlled substance at d/c from ED?: No Referrals: Edgard Lopes MD [Primary Care Provider] - 1-2 days Time of Disposition: 17:23
[2024-10-02 16:00] LABS: Basophils # (A) 0.05 10*3/uL (0.00-0.10); Basophils % (A) 0.9 %; Eosinophils # (A) 0.18 10*3/uL (0.04-0.35); Eosinophils % (A) 3.2 %; HCT 45.7 % (39.6-50.0); HGB 15.2 g/dL (13.0-17.0); Lymphocytes # (A) 1.19 10*3/uL (0.90-5.00); Lymphocytes % (A) 21.3 %; MCH 31.1 pg (27.0-32.0); MCHC 33.3 g/dL (32.0-37.0); MCV 93.5 fL (80.0-97.0); Mean Platelet Volume 9.1 fL (9.5-12.2); Monocytes # (A) 0.62 10*3/uL (0.20-1.00); Monocytes % (A) 11.1 %; Neutrophils # (A) 3.53 10*3/uL (1.80-7.70); Neutrophils % (A) 63.1 %; Platelet Count 191 10*3/uL (140-440); RBC 4.89 10*6/uL (4.40-5.60); RDW 13.5 % (11.5-14.5); WBC 5.59 10*3/uL (4.50-10.00)
[2024-10-02 16:01] LABS: Appearance,Urine Clear (Clear); Bilirubin,Urine Negative (Negative); Blood,Urine Negative (Negative); Color,Urine Light Yellow; Glucose,Urine (UA) Negative (Negative); Ketones,Urine Negative (Negative); Leukocyte Esterase,Urine Negative (Negative); Nitrite,Urine Negative (Negative); Protein,Urine Negative (Negative); Specific Gravity,Urine 1.026 (1.001-1.035); Urobilinogen,Urine <2.0 mg/dL (<2.0)
--- NOTE | 2024-10-02 16:07 | US ---
EXAMINATION TYPE: US venous doppler duplex LE LT DATE OF EXAM: 10/02/2024 3:58 PM COMPARISON: US CLINICAL INDICATION: Male, 74 years old with history of edema and pain; Pain left leg, Pain TECHNIQUE: The lower extremity deep venous system is examined utilizing real time linear array sonog ricky with graded compression, color doppler sonography, and spectral doppler. SIDE PERFORMED: Left FINDINGS: VESSELS IMAGED: Common Femoral Vein Deep Femoral Vein Greater Saphenous Vein * Femoral Vein Popliteal Vein Small Saphenous Vein * Proximal Calf Veins (* superficial vessels) Left Leg: Negative for DVT, Color Doppler imaging shows patency of the vessels. Spectral waveforms a re within normal limits. IMPRESSION: No ultrasound evidence for deep venous thrombosis. [facility], , 10/02/2024 4:05 PM
[2024-10-02 16:13] LABS: ALT 22 U/L (4-49); AST 24 U/L (17-59); African American GFR (CKD) 79 (>60 ml/min/1.73 sqM); Albumin 4.1 g/dL (3.5-5.0); Alkaline Phosphatase 81 U/L (38-126); Amylase 66 U/L (30-110); Anion Gap 9 mmol/L; Blood Urea Nitrogen 21 mg/dL (9-20); Calcium 9.9 mg/dL (8.4-10.2); Carbon Dioxide 28 mmol/L (22-30); Chloride 105 mmol/L (98-107); Glucose 91 mg/dL (74-99); Lipase 87 U/L (23-300); Non-African American GFR(CKD) 68 (>60 ml/min/1.73 sqM); Potassium 4.4 mmol/L (3.5-5.1); Sodium 142 mmol/L (137-145); Total Bilirubin 0.8 mg/dL (0.2-1.3)
[2024-10-02] MEDS: SODIUM CHLORIDE 0.9% 1,000 ML IV ONE (16:36)
[2024-10-02 16:48] VITALS: RESP 14; TEMP 98
--- NOTE | 2024-10-02 17:13 | CT ---
EXAMINATION TYPE: CT abdomen pelvis w con DATE OF EXAM: 10/02/2024 5:04 PM COMPARISON: None. CLINICAL INDICATION: Male, 74 years old with history of diarrhea/lower abd cramping; Abdominal pain w ith diarrhea TECHNIQUE: Axial CT abdomen pelvis w con;Sagittal and coronal reformats were created on a separate w orkstation. Contrast used:100ml mL of Isovue 300 with IV Contrast, (none if empty) Oral contrast used: without Oral Contrast (none if empty) CT DLP: 994.2 mGycm, Automated exposure control for dose reduction was used. FINDINGS: LOWER CHEST: Unremarkable ABDOMEN LIVER: Unremarkable GALLBLADDER AND BILE DUCTS: Unremarkable. PANCREAS: Unremarkable. SPLEEN: Unremarkable. ADRENAL GLANDS: Unremarkable. KIDNEYS AND URETERS: No evidence of hydronephrosis or renal calculus. The ureters are unremarkable. Bilateral renal cysts. Retroaortic left renal vein. PELVIS BLADDER: No evidence for wall thickening or mass given limitations of exam. REPRODUCTIVE: Prostatomegaly. ABDOMEN & PELVIS STOMACH AND BOWEL: Stomach and duodenum are unremarkable. Scattered diverticula are noted throughout the colon. No evidence of bowel obstruction. PERITONEUM/RETROPERITONEUM: No evidence of pneumoperitoneum or free fluid. VASCULATURE: No evidence of aortic aneurysm. MUSCULOSKELETAL: No acute osseous abnormalities LYMPH NODES: No gross evidence for lymphadenopathy. SOFT TISSUE/ABDOMINAL WALL: Unremarkable IMPRESSION: Liquid stool throughout the colon suggestive of diarrhea. No associated mesenteric inflammation. No a dditional evidence of an acute abnormality in the abdomen/pelvis. [facility], , 10/02/2024 5:11 PM
[2024-10-02 18:10] VITALS: BP 130/87; PULSE 67
== END 2024-10-02 18:10 | disposition home or self-care (01) ==
LOC: EC 14:52
DX: R10.30 Lower abdominal pain, unspecified (principal); L03.90 Cellulitis, unspecified; Z91.040 Latex allergy status
CPT/HCPCS: 99285 ×2; 96360 ×2; 36415; 80053; 82150; 83605; 83690; 85025; 81003; 93971; 74177; Q9967